=== PATIENT | male | born 1975 | race Caucasian/White ===

== ENCOUNTER 2017-03-19 20:00 | Inpatient (IN) | payer OTHER ==
--- NOTE | ~2017-03-19 | PN ---
Unit #: [id number] #: [id number] Patient: COLT GARCIA [id number] [facility] [address] [place] [address] [id number] MR#: [id number] NAME: COLT GARCIA ROOM: [facility] Age: 41 Sex: M Admission Date: 03/20/2017 : 1975 Attending Physician: Cortez De La Rosa M.D. Admitting Physician: Cortez De La Rosa M.D. Primary Care Physician: Primary Care Physician Hayley GRANT PROGRESS NOTES DATE 03/23/2017 DISCUSSION Colt continues to have mild to moderate detox symptoms today. His mood remains mildly depressed and anxious with a congruent affect. He is alert and fully oriented with no evidence of psychosis. He denies suicidal ideation today. He does complain of significant anxiety. ASSESSMENT Alcohol dependence. PLAN Add vistaril p.r.n. for anxiety and continue treatment planning towards discharge. Dictated by... Vito Borja/maite TD: 03/28/2017 23:00 JOB #: [id number] [facility] PROGRESS NOTES Page 1 of 1 X Cortez De La Rosa MD PROGRESS NOTE
--- NOTE | ~2017-03-19 | HP ---
Unit #: [id number] #: [id number] Patient: COLT GARCIA [id number] [place] [address] [id number] MR#: [id number] NAME: COLT GARCIA ROOM: [facility] Age: 41 Sex: M Admission Date: 03/20/2017 : 1975 Attending Physician: Cortez De La Rosa M.D. Admitting Physician: Cortez De La Rosa M.D. Primary Care Physician: Primary Care Physician No HISTORY AND PHYSICAL HISTORY OF PRESENT ILLNESS Colt is a 41-year-old male admitted on 03/20/2017 to [facility] for detox from alcohol after a recent relapse. He reports recently drinking excessive liquor. PAST MEDICAL HISTORY None. PAST SURGICAL HISTORY Left leg surgical repair after an injury. ALLERGIES None. SOCIAL HISTORY Smokes 1 pack of cigarettes daily. Binge alcohol use after a relapse. He denies illegal drug use. He is currently single and living with his brother. FAMILY HISTORY Noncontributory. REVIEW OF SYSTEMS CONSTITUTIONAL: No fever or chills. HEENT: Denies any sore throat, ear pain or runny nose. CARDIOVASCULAR: Denies chest pain, irregular heart rhythm or palpitations. CHEST: Denies shortness of breath or cough. No hemoptysis. GASTROINTESTINAL: Denies nausea, vomiting, diarrhea or chronic constipation. ENDOCRINE: Denies history of increased thirst or urination. No recent significant weight loss or gain. GENITOURINARY: Denies dysuria, frequency, or hematuria. SKIN: Denies any rashes. HEMATOLOGIC: Denies history of increased bleeding or bruising. MUSCULOSKELETAL: Denies any hot, swollen joints. No generalized muscle pain. NEUROLOGIC: Denies problems with vision or speech. No frequent, severe headaches. No numbness, tingling or weakness in any extremities. Denies loss of bladder or bowel control. CURRENT MEDICATIONS None. Unit #: [id number] #: [id number] Patient: COLT GARCIA PHYSICAL EXAMINATION GENERAL: Alert, oriented, in no acute distress. VITAL SIGNS: Blood pressure 153/92, heart rate 90, respirations 16, temperature 98.7. HEIGHT: 5 feet 5. WEIGHT: 130 pounds. SKIN: Warm and dry without rash or lesion. HEENT: Normocephalic. TMs not viewed. Oral and nasal passages clear. Conjunctivae clear. PERRLA. EOMs intact. NECK: Supple without lymphadenopathy or thyromegaly. HEART: Regular rate and rhythm without murmur. LUNGS: Clear. ABDOMEN: Soft, nontender, without masses or hepatosplenomegaly. : Not done. EXTREMITIES: No evidence of cyanosis, clubbing or edema. Moves all without focal deficit. NEUROLOGICAL: Grossly within normal limits. Cranial Nerves: II: Visual kolb are intact. III, IV AND : Extraocular movements are intact. Pupils are equal, round and reactive to light. V: Facial sensation is grossly normal. VII: Facial movements and expression are normal. VIII: Auditory acuity grossly intact. IX, X: Uvula is midline. Phonation is normal. XI: Patient shrugs shoulders and turns head normally. XII: Tongue protrudes in the midline. Sensory and Motor Function: Sensory and motor sensation is grossly normal. Motor: moves all extremities well. Coordination: Gait is normal. Deep Tendon Reflexes: Intact. IMPRESSION Psychiatric admission. RECOMMENDATIONS PSYCHIATRIC: Per psychiatrist. MEDICAL: No contraindications to participate in facility's activities. MEDICAL PROGNOSIS Good. MEDICAL CONDITION Stable. Dictated by... Myles Welch/ariel TD: 03/20/2017 17:24 JOB #: [id number] Unit #: [id number] #: [id number] Patient: COLT GARCIA HISTORY AND PHYSICAL Page 1 of 1 X LESLEE GALAN APRN X HISTORY AND PHYSICAL
--- NOTE | ~2017-03-19 | PN ---
Unit #: [id number] #: [id number] Patient: CINTHYA GARCIA [id number] [facility] [address] [place] [address] [id number] I MR#: [id number] NAME: CINTHYA GARCIA ROOM: [facility] Age: 41 Sex: M Admission Date: 03/20/2017 : 1975 Attending Physician: Cortez De La Rosa M.D. Admitting Physician: Cortez De La Rosa M.D. Primary Care Physician: Primary Care Physician Hayley GRATN PROGRESS NOTES REVISED REPORT DATE 03/21/2017 DISCUSSION Upon today's assessment the patient was found attending groups. He was fully alert and oriented to all spheres. He was pleasant and cooperative during this assessment and had mild complaints of physical withdrawal at this time. He reports "I'm okay mostly" and states that his anxiety went down a little bit still some lingering spine tremors in his bilateral upper extremities at this time. At this time he also reports no suicidal ideation/homicidal ideation and verbalizes no plan or intent. He denies auditory or visual hallucinations and no overt symptoms of psychosis was noted. His mood was "alright. Affect congruent. His speech was relevant, coherent with normal tone and rate. Thought processes appeared goal directed at this time. Memory and intellectual functioning grossly intact. Judgement and insight fair. Reports adequate sleep and appetite at this time and denies any side effects to the medications. ASSESSMENT Alcohol dependence and withdrawal uncomplicated. PLAN Continue current medications and detox protocol. SIGNING PHYSICIAN REVISED Dictated by... Aida Mir APRN for Cortez De La Rosa M.D. DEON/maite TD: 03/23/2017 23:03 JOB #: [id number] Unit #: [id number] #: [id number] Patient: CINTHYA GARCIA PROGRESS NOTES Page 1 of 1 X AIDA MIR PROGRESS NOTE
--- NOTE | ~2017-03-19 | DS ---
Unit #: [id number] #: [id number] Patient: CINTHYA GARCIA [id number] [facility] [address] [place] [address] [id number] MR#: [id number] NAME: CINTHYA GARCIA ROOM: [facility] Age: 41 Sex: M Admission Date: 03/20/2017 : 1975 Discharge Date: 03/25/2017 Attending Physician: Cortez De La Rosa M.D. Primary Care Physician: Primary Care Physician No DISCHARGE SUMMARY REASON FOR ADMISSION Mr. Garcia is a 41-year-old man who relapsed after 3-week period of sobriety as drinking a fifth or more daily. He had some suicidal ideation, and was admitted for detox. DIAGNOSTIC STUDIES LABORATORY RESULTS: Please see hospital chart. HOSPITAL COURSE The patient was admitted on suicide precautions and the alcohol detox protocol. Zoloft 50 mg daily was initiated for treatment of depression and was well tolerated. He had no adverse events such as delirium, hallucinations, or confusion during his detox period and was able to contract for safety on the date of discharge. DISCHARGE DIAGNOSES AXIS I: Major depression; alcohol dependence. AXIS II: No diagnosis. AXIS III: Hypertension. AXIS IV: AXIS V: DISCHARGE INSTRUCTIONS Follow up with [facility]. DISCHARGE MEDICATIONS Zoloft 50 mg daily for depression. CONDITION AT DISCHARGE Improved. PROGNOSIS Fair to good. DIET AND ACTIVITY Per primary care doctor. Dictated by... Cortez De La Rosa M.D. [facility] Unit #: [id number] #: [id number] Patient: CINTHYA GARCIA TD: 04/10/2017 05:50 JOB #: [id number] DISCHARGE SUMMARY Page 1 of 1 X Cortez De La Rosa MD X DISCHARGE SUMMARY
--- NOTE | ~2017-03-19 | PN ---
Unit #: [id number] #: [id number] Patient: CINTHYA GARCIA [id number] [facility] [address] [place] [address] [id number] I MR#: [id number] NAME: CINTHYA GARCIA ROOM: [facility] Age: 41 Sex: M Admission Date: 03/20/2017 : 1975 Attending Physician: Cortez De La Rosa M.D. Admitting Physician: Cortez De La Rosa M.D. Primary Care Physician: Primary Care Physician Hayley GRANT PROGRESS NOTES REVISED REPORT DATE 03/22/2017 DISCUSSION Upon today's assessment the patient was found attending groups. He reports that his mood is "good." He reports minimum signs and symptoms of physical withdrawal at this time. Still shows some fine tremors in the bilateral upper extremities. Has complaints of nausea today but that is relieved with the detox protocol and he denies any side effects to those medications. Upon admission he was started on 50 mg of Zoloft daily and he reports that he is tolerating that quite well. ASSESSMENT Alcohol dependence with withdrawal uncomplicated. PLAN Continue current medications and detox protocol. SIGNING PHYSICIAN REVISED Dictated by... Aida Mir APRN for Vito Borja/maite TD: 03/23/2017 23:13 JOB #: [id number] [facility] PROGRESS NOTES Page 1 of 1 X AIDA MIR PROGRESS NOTE
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
[2017-03-20 10:04] LABS: BASOPHIL# 0.1 X10e3 (0-0.3); BASOPHIL% 0.5 % (0-2.5); EOSINOPHIL# 0.2 X10e3 (0-0.7); EOSINOPHIL% 1.8 % (0.0-7.0); HEMATOCRIT 43.4 % (38.0-50.0); HEMOGLOBIN 14.4 gm/dL (13.0-16.0); LYMPHOCYTE# 1.9 X10e3 (1.0-3.5); LYMPHOCYTE% 17.2 % (17.0-45.0); MEAN CELL VOLUME 88.3 FL (83-96); MEAN CORPUSCULAR HEMOGLOBIN 29.3 PG (28-34); MEAN CORPUSCULAR HGB CONC 33.2 g/dL (30-36); MEAN PLATELET VOLUME 8.1 FL (6.5-11.5); MONOCYTE# 1.1 X10e3 (0-1.0); MONOCYTE% 10.3 % (3.0-12.0); NEUTROPHIL# 7.7 X10e3 (1.5-7.1); NEUTROPHIL% 70.2 % (40-75); PLATELET COUNT 268 X10e3 (140-420); RED BLOOD COUNT 4.92 X10e (3.90-5.60); RED CELL DISTRIBUTION WIDTH 13.4 % (11.0-15.5); WHITE BLOOD COUNT 10.9 X10e3 (4.0-10.5)
[2017-03-20 10:06] LABS: DIFF IND NO
[2017-03-20 10:56] LABS: ALBUMIN SERUM 3.7 g/dL (3.5-5.0); BILIRUBIN,TOTAL 0.6 mg/dL (0.2-2.0); BUN/CREATININE RATIO 13.75; CREATININE SERUM 0.8 mg/dL (0.6-1.4); GLOM FILT RATE Estimated 109.5 mL/min (>60)
[2017-03-21 13:08] LABS: AMPHETAMINE NEG (NEG); BARBITURATES NEG (NEG); BENZODIAZEPINES NEG (NEG); COCAINE NEG (NEG); MARIJUANA NEG (NEG); OPIATES NEG (NEG); TRICYCLIC ANTIDEPRESSANTS NEG (NEG); U METHADONE NEG (NEG)
== END 2017-03-25 13:45 | DRG 881 ==
LOC: P1E 03-20 02:54
PROVIDERS: Psychiatry & Neurology Psychiatry
PROC: HZ2ZZZZ Detoxification Services for Substance Abuse Treatment (ICD-10-PCS; principal; 2017-03-20)
DX: F32.9 Major depressive disorder, single episode, unspecified (principal); I10 Essential (primary) hypertension; F10.230 Alcohol dependence with withdrawal, uncomplicated
CPT/HCPCS: 80053; 80307; 85025; 86592